=== PATIENT | female | born 1955 | race Caucasian/White ===

== ENCOUNTER 2016-10-08 12:10 | Emergency (ER) | payer OTHER ==
[~2016-10-08 12:10] MED LIST: ARMOUR THYRO30 MG PO; CALTRAT600 PO; CENTRUM PO; ESTRACE0.5 MG PO; FISH-EPA1000 MG PO; VITAMIN D400 UNI1 PO
== END 2016-10-08 12:55 | disposition home or self-care (01) ==
LOC: ER 12:10
PROC: 2W3EX1Z Immobilization of Right Hand using Splint (ICD-10-PCS; principal; 2016-10-08)
DX: S62.616A Displaced fracture of proximal phalanx of right little finger, initial encounter for closed fracture (principal); Z88.8 Allergy status to other drugs, medicaments and biological substances; Z79.899 Other long term (current) drug therapy; W19.XXXA Unspecified fall, initial encounter
CPT/HCPCS: 73130-RT; 99283; A9270-GY